=== PATIENT | male | born 1965 | race Caucasian/White ===

== ENCOUNTER 2020-06-23 15:35 | Inpatient (IN) | payer BC, OTHER ==
[~2020-06-23 15:35] MED LIST: Iopamidol-370 76% 500 ML 1 ML ONE
[2020-06-23] MEDS ORDERED: Lorazepam 2 MG/ML VIAL ONE ×2 (16:01→18:16)
[2020-06-23 16:30] LABS: #Lymphocytes 0.4 thou/uL (1.20-3.40); #Monocytes 0.4 thou/uL (0.11-0.59); #Neutrophils 4.2 thou/uL (1.40-6.50); %Basophils 0.7 % (0.0-1.0); %Eosinophils 0.3 % (0.0-10.0); %Lymphocytes 8.3 % (21.0-51.0); %Monocytes 7.5 % (0.0-10.0); %Neutrophils 83.1 % (42.0-75.0); Hemoglobin 12.4 g/dL (14.0-18.0); Mean Corpuscular HGB CONC 33.7 g/dL (32.0-36.0); Mean Corpuscular Hemoglobin 36.9 pg (27.0-31.0); RBC Distribution Width 12.5 % (11.5-14.5); Red Blood Cell (RBC) Count 3.36 mill/uL (4.70-6.10); White Blood Cell (WBC) Count 5.1 thou/uL (4.8-10.8)
--- NOTE | 2020-06-23 16:32 | RAD ---
PORTABLE CHEST ONE VIEW: 06/23/20 at 4:20 p.m. HISTORY: Altered mental status. FINDINGS/IMPRESSION: There are no previous exams for comparison. The heart is enlarged. No lobar consolidation, pneumothoraces, felicitas pulmonary edema or large effusio ns are seen. POS: OFF
[2020-06-23 16:36] LABS: Actual Bicarbonate (HCO3a) 23.5 mEq/L (22-28); Analyzer IN Cardio ER; CO2 Tension 38.6 mmHg (35.0-45.0); Calcium, Ionized (arterial) 1.14 mmol/L (1.12-1.30); Carboxyhemoglobin (COHb) 0.9 gm% (0.0-3.0); Hemoglobin (Hb) 12.4 g/dL (14.0-18.0); O2 Tension (PaO2), arterial 65.4 mmHg (80.0-100.0); Potassium - ABG Lab 3.74 mmol/L (3.70-5.30)
[2020-06-23 16:37] LABS: Puncture Site RRA
[2020-06-23] MEDS ORDERED: Cefepime 2 GM VIAL ONE (16:39)
[2020-06-23 16:46] LABS: ALT (SGPT) 55 U/L (8-55); AST (SGOT) 107 U/L (5-34); Albumin 3.3 g/dL (3.5-5.0); Alkaline Phosphatase 81 U/L (40-110); Anion Gap 13 mmol/L (10-20); BUN (Urea Nitrogen) 12 mg/dL (8.4-25.7); Calc. Creatinine Clearance 0 mL/min (70-130); Calcium 8.4 mg/dL (7.8-10.44); Carbon Dioxide 22 mmol/L (22-29); Chloride 105 mmol/L (98-107); Estimated GFR-MDRD Greater than 90; Globulin 5.9 g/dL (2.4-3.5); Glucose 169 mg/dL (70-105); Lipase 13 U/L (8-78); Potassium 3.9 mmol/L (3.5-5.1); Protein, Total 9.2 g/dL (6.0-8.3); Sodium 136 mmol/L (136-145)
[2020-06-23 16:51] LABS: MDiff Complete? YES; Macrocytosis SLIGHT = 6-15 cells (100X) (0-5/hpf); Mean Platelet Volume 9.3 fL (7.4-10.4); Platelet Count 81 thou/uL (130-400); Platelet Morphology Comment Appears Decreased; Polychromasia SLIGHT = 2-3 cells (100X) (0-2/hpf); Target Cells SLIGHT = 2-5 cells (100X) (0-1/hpf)
[2020-06-23 16:52] LABS: ALT (SGPT) 55 U/L (8-55); AST (SGOT) 115 U/L (5-34); Acetaminophen Less than 6.0 mcg/mL (10.0-30.0); Albumin 3.3 g/dL (3.5-5.0); Alcohol Less than 10 mg/dL (Less than 10); Alkaline Phosphatase 81 U/L (40-110); Bilirubin, Direct 1.5 mg/dL (0.1-0.3); Bilirubin, Total 4.7 mg/dL (0.2-1.2); CK (CPK) 114 U/L (30-200); Protein, Total 9.2 g/dL (6.0-8.3); Salicylate Less than 8.0 mg/dL (15.0-30.0)
[2020-06-23] MEDS ORDERED: Rocuronium Bromide 10 MG/ML (10ML VIAL) ONE (17:28)
--- NOTE | 2020-06-23 17:29 | CT ---
Head CT without contrast: 06/23/2020 COMPARISON: None HISTORY: Tremors, altered mental status, unresponsive, jaundice TECHNIQUE: Axial CT imaging at 5 mm intervals from vertex through skull base without contrast FINDINGS: There is a hyperdense lesion measuring 4.3 x 3.4 cm which is inseparable from the mid body of the left lateral ventricle, possibly along the superior margin of the left lateral ventricle. This is most consistent with a large intra-axial hemorrhage. There is prominent extension into the ve ntricular system with intraventricular hemorrhage involving the third ventricle and bilateral lateral ventricles, particularly the occipital horns, left greater than right. Periventricular hypode nsity suggests subacute minimal flow of CSF and enlargement of the lateral ventricles suggests obstructive hydrocephalus. There is associated extensive subarachnoid blood in bilateral frontal lobe s and parietal lobes. There is left to right midline shift measuring approximately 1 cm at the level of the septum pellucidum. There is extension of hemorrhage into the fourth ventricle. There is evidence of prior paranasal sinus surgery. No acute osseous abnormality. IMPRESSION: 3.4 x 4.2 cm hyperdense lesion most consistent with intra-axial hemorrhage along the preston in of the mid body left lateral ventricle with extensive intraventricular extension. Lateral ventricles are dilated consistent with obstructive hydrocephalus and there is transependymal flow of CSF. There is associated [id number] midline shift and diffuse subarachnoid blood. Follow-up brain MRI advised following resolution to exclude an underlying lesion which has bled. Results were discussed with Dr. Brown at 5:25 PM 06/23/2020
[2020-06-23] MEDS ORDERED: niCARdipine 20MG In NaCl 20 MG/200 ML BAG ONE ×2 (17:34→21:32)
--- NOTE | 2020-06-23 17:37 | CT ---
CT cervical spine without contrast: 06/23/2020 COMPARISON: None available HISTORY: Intracranial hemorrhage, altered mental status TECHNIQUE: Axial CT imaging at 2.5 mm intervals through the cervical spine without contrast. Coronal and sagittal reformatted imaging obtained. FINDINGS: There is intraventricular hemorrhage and dilation of the ventricular system, better assesse d on recent head CT. The C1 ring is intact. The craniocervical junction, the atlantoaxial interspace, the occipital condyl es, the dens, and the C1-2 articulation demonstrate no acute findings. The cervicothoracic junction demonstrates no acute findings. There is disc space narrowing and anterior osteophyte formation at C6 -7. No prevertebral soft tissue swelling. No anterolisthesis or retrolisthesis. The imaged lung apices demonstrate no acute findings. No acute fracture or dislocation is appreciated . IMPRESSION: Dilated lateral ventricles with intraventricular hemorrhage, better assessed on recent he ad CT. No evidence for acute fracture or dislocation within the cervical spine.
--- NOTE | 2020-06-23 17:43 | CT ---
CT of abdomen and pelvis: 06/23/2020 COMPARISON: None HISTORY: Cirrhosis, unresponsive patient TECHNIQUE: Axial CT imaging at 5 mm intervals from lung bases through pubic symphysis with IV contras t. Coronal and sagittal reformatted imaging obtained. FINDINGS: The imaged lung bases demonstrate patchy bibasilar density, likely on the basis of respirat ory motion artifact and mild volume loss. No free intraperitoneal air. The liver is enlarged and heterogeneous with mild peripheral irregularity consistent with the provide d history of cirrhosis. The spleen is enlarged measuring 21 cm in craniocaudal dimension, evidence of portal hypertension. The gallbladder, pancreas, adrenal glands, and kidneys demonstrate no acute findings. There are varic es along the greater and lesser curvature of the stomach, adjacent to the distal esophagus, within the gastrohepatic ligament, and in the region of the splenic hilum, consistent with portal hypertensi on. There is a small fat-containing umbilical hernia. There is mild distention of the urinary bladder. Pr ominent vascular structures are seen adjacent to the rectum suggesting internal hemorrhoid formation. Evaluation the bowel is limited without contrast media and demonstrates a few scattered diverticula w ithin the descending colon. There is minimal stranding of the fat within the posterior aspect of the inferior portion of the right paracolic gutter, likely associated with hepatocellular disease. There is scattered atherosclerotic calcification of the abdominal aorta and its branches. No abdomina l or pelvic lymphadenopathy. Review of the osseous structures demonstrates no worrisome lytic or blastic bone lesions. IMPRESSION: Cirrhosis with evidence of portal hypertension as detailed above.
[2020-06-23] MEDS ORDERED: Sodium Chloride 3% 250 ML IVPB SCH (17:45)
[2020-06-23] MEDS ORDERED: fentaNYL Citrate/PF 2,000 MCG in Sodium Chloride 0.9% 60 ML IV SCH ×2 (17:45→20:15)
[2020-06-23] MEDS ORDERED: Fentanyl 100 MCG/2 ML VIAL ONE (17:48)
[2020-06-23] MEDS ORDERED: Propofol 1,000 MG/100 ML VIAL IV ONE (17:48)
[2020-06-23 18:02] LABS: INR-International Normal Ratio 1.7; PTT 37.4 sec (22.9-36.1)
--- NOTE | 2020-06-23 18:15 | RAD ---
Portable frontal chest radiograph: 06/23/2020 COMPARISON: 06/23/2020 HISTORY: Evaluate chest following intubation FINDINGS: There is new patchy increased density in the perihilar regions and lung bases with new part ial consolidation/collapse of the medial left lower lobe. There is a nasogastric tube extending into the left upper quadrant and there is a new endotracheal tube projecting over the tracheal air co lumn terminating at the level of the clavicles IMPRESSION: New parenchymal opacities as above, left greater than right. Lines and tubes as detailed above.
[2020-06-23] MEDS ORDERED: levETIRAcetam in NS 100 ML ONE (18:19)
[2020-06-23] MEDS ORDERED: Labetalol HCl 100 MG/20 ML VIAL ONE (18:26)
[2020-06-23 18:46] LABS: Amphetamine Not Detected (NotDetected); Barbiturates Screen Not Detected (NotDetected); Benzodiazepine Screen Not Detected (NotDetected); Cocaine Metabolite Screen Not Detected (NotDetected); Medtox Control Line Valid? VALID (VALID); Medtox Reader # READER 1; Methadone Not Detected (NotDetected); Methamphetamine Not Detected (NotDetected); Opiate Screen Not Detected (NotDetected); Oxycodone Screen Not Detected (NotDetected); Phencyclidine (PCP) Not Detected (NotDetected); THC/Cannabinoid Screen Not Detected (NotDetected); Tricyclic Screen Not Detected (NotDetected)
[2020-06-23 19:03] LABS: Analyzer IN Cardio ER; Base Excess (BEa) -2.8 mEq/L (-2.0 to +3.0); CO2 Tension 49.8 mmHg (35.0-45.0); Calcium, Ionized (arterial) 1.16 mmol/L (1.12-1.30); Carboxyhemoglobin (COHb) 0.7 gm% (0.0-3.0); Hemoglobin (Hb) 12.9 g/dL (14.0-18.0); O2 Tension (PaO2), arterial 107.8 mmHg (80.0-100.0); Potassium - ABG Lab 3.79 mmol/L (3.70-5.30)
[2020-06-23] MEDS ORDERED: Ondansetron PF 4 MG/2 ML Vial IVP PRN (19:52)
[2020-06-23] MEDS ORDERED: Ondansetron ODT 4 MG TAB PO PRN (19:52)
[2020-06-23] MEDS ORDERED: Ventilator Sedation Protocol 1 EACH FS ONE (20:00)
[2020-06-23] MEDS ORDERED: niCARdipine 40MG In NaCl 40 MG/200 ML BAG IVPB SCH (20:00)
[2020-06-23 20:01] LABS: SARS-CoV-2 NAA Rapid Test Not Detected (NotDetected)
--- NOTE | 2020-06-23 20:09 | PDOC.HHP ---
Hospitalist HPI - History of Present Illness ich History of Present Illness: most of the history obtain from ems and emr records. during my evaluation pt was on sedated and on MV Case of an 55y/o male with pmhx of alcohol abuse and htn found unresponsive at home by his father brought in by EMS. On arrival patient noted to be jaundiced, responsive only to pain, telangiectases on body noted, incontinent of feces and with asterixis in upper extremities. Patient's father reports he has an extensive history of alcohol abuse exact amount per day unknown. Patient's length of time down at home is unknown. Patient's father last interacted with him 48 hours ago. patient was evaluated at found with ICH was placed in MV to protect airway and neurosurgery was called for evaluation. Hospitalist ROS - Review of Systems ROS unobtainable: due to endotracheal tube Hospitalist History - Past Surgical History Other Surgical History: unable to asses due to MV - Family History Other Family History: unable to asses due to MV - Social History Alcohol: reports: Heavy - Exam General Appearance: ill appearing General - other findings: sedated Eye: PERRL, anicteric sclera ENT: normocephalic atraumatic, no oropharyngeal lesions Neck: supple, symmetric, no JVD, no thyromegaly Heart: RRR, no murmur, no gallops Respiratory: CTAB, no wheezes, no rales, no ronchi Gastrointestinal: soft, non-tender, non-distended Extremities: no cyanosis, no clubbing, no edema Skin: normal turgor, no lesions, no rashes Neurological: cranial nerve grossly intact, normal sensation to touch Musculoskeletal: normal tone, normal strength, no muscle wasting Psychiatric: normal affect, normal behavior, A&O x 3 Hospitalist Results - Labs Result Diagrams: 06/23/20 16:13 06/23/20 16:13 Lab results: WBC 5.1 thou/uL (4.8-10.8) 06/23/20 16:13 Hgb 12.4 g/dL (14.0-18.0) L 06/23/20 16:13 Hct 36.9 % (42.0-52.0) L 06/23/20 16:13 MCV 110.0 fL (78.0-98.0) H 06/23/20 16:13 Plt Count 81 thou/uL (130-400) L 06/23/20 16:13 Neutrophils % 83.1 % (42.0-75.0) H 06/23/20 16:13 ABG pH 7.30 (7.35-7.45) L 06/23/20 18:03 ABG pCO2 49.8 mmHg (35.0-45.0) H 06/23/20 18:03 ABG pO2 107.8 mmHg (80.0-100.0) H 06/23/20 18:03 Sodium 136 mmol/L (136-145) 06/23/20 16:13 Potassium 3.9 mmol/L (3.5-5.1) 06/23/20 16:13 Chloride 105 mmol/L (98-107) 06/23/20 16:13 Carbon Dioxide 22 mmol/L (22-29) 06/23/20 16:13 BUN 12 mg/dL (8.4-25.7) 06/23/20 16:13 Creatinine 0.69 mg/dL (0.7-1.3) L 06/23/20 16:13 Glucose 169 mg/dL (70-105) H 06/23/20 16:13 Lactic Acid 1.3 mmol/L (0.5-2.2) 06/23/20 16:13 Calcium 8.4 mg/dL (7.8-10.44) 06/23/20 16:13 Total Bilirubin 4.7 mg/dL (0.2-1.2) H 06/23/20 16:13 Total Bilirubin 5.0 mg/dL (0.2-1.2) H 06/23/20 16:13 AST 107 U/L (5-34) H 06/23/20 16:13 AST 115 U/L (5-34) H 06/23/20 16:13 ALT 55 U/L (8-55) 06/23/20 16:13 ALT 55 U/L (8-55) 06/23/20 16:13 Alkaline Phosphatase 81 U/L (40-110) 06/23/20 16:13 Alkaline Phosphatase 81 U/L (40-110) 06/23/20 16:13 Ammonia 43 umol/L (18-72) 06/23/20 16:13 Creatine Kinase 114 U/L (30-200) 06/23/20 16:13 Troponin I 0.013 ng/mL (< 0.028) 06/23/20 16:13 Serum Total Protein 9.2 g/dL (6.0-8.3) H 06/23/20 16:13 Serum Total Protein 9.2 g/dL (6.0-8.3) H 06/23/20 16:13 Albumin 3.3 g/dL (3.5-5.0) L 06/23/20 16:13 Albumin 3.3 g/dL (3.5-5.0) L 06/23/20 16:13 Lipase 13 U/L (8-78) 06/23/20 16:13 Hospitalist H&P A/P - Problem (1) ICH (intracerebral hemorrhage) Code(s): I61.9 - NONTRAUMATIC INTRACEREBRAL HEMORRHAGE, UNSPECIFIED Status: Acute (2) Alcohol abuse Code(s): F10.10 - ALCOHOL ABUSE, UNCOMPLICATED Status: Acute (3) Cirrhosis Code(s): K74.60 - UNSPECIFIED CIRRHOSIS OF LIVER Status: Acute (4) HTN (hypertension) Code(s): I10 - ESSENTIAL (PRIMARY) HYPERTENSION Status: Acute - Plan Plan: 55y/o male with the state pmhx who present with ICH ICH - head ct consitent with ich - neuro surgery consulted - on nicardine drip to maintain b/p systolic under 140 - avoid blood thinners - npo - ffp + plts transfusion for procedure - avoid hypotonic fluids - on MV to protect airway - pulmo/crit consulted - martha for seizure prophylaxis htn - on nicardipine drip cirrhosis - secondary to alcohol use - consider thiamine + folic acid before po intake when pt is more stable - currently sedated - ammonia lvl at 43
[2020-06-23] MEDS ORDERED: Fentanyl BOLUS 250 ML IVPB PRN (20:15)
[2020-06-23] MEDS ORDERED: Lorazepam 2 MG/ML VIAL SLOW IVP PRN (20:15)
[2020-06-23] MEDS ORDERED: Propofol BOLUS 1,000 MG/100 ML VIAL IV PRN (20:15)
[2020-06-23] MEDS ORDERED: DISCONTINUE PREVIOUS NARCOTIC PAIN MEDICATIONS AND BENZODIAZEPINES FS SCH (20:15)
[2020-06-23] MEDS ORDERED: Morphine 2 MG/ML VIAL SLOW IVP PRN (20:15)
[2020-06-23 20:55] LABS: INR-International Normal Ratio 1.6; PTT 35.2 sec (22.9-36.1); Prothrombin Time 19.4 sec (12.0-14.7)
[2020-06-23] MEDS ORDERED: levETIRAcetam in NS 500 MG in Premix Bag 1 BAG IVPB SCH (21:00)
[2020-06-23 21:01] LABS: Platelet Count 95 thou/uL (130-400)
[2020-06-23 21:15] LABS: INR-International Normal Ratio 1.5
[2020-06-23] MEDS ORDERED: Water For Inject, Bacteriostat 30 ML ONE (21:51)
[2020-06-23] MEDS ORDERED: ceFAZolin 1 GM/D5W 1 GM in Premix Bag 1 BAG IVPB SCH (22:00)
[2020-06-23] MEDS ORDERED: Sterile Water 10 ML ONE (23:35)
[2020-06-23] MEDS ORDERED: Piperacillin/Tazobactam 4.5 GM in Sodium Chloride 0.9% 100 ML IVPB SCH (23:59)
--- NOTE | 2020-06-24 00:33 | CON ---
DATE OF CONSULTATION: 06/23/2020 HISTORY OF PRESENT ILLNESS: Mr. Villagran is a 55-year-old male with a past medical history of alcoholism, cirrhosis, hypertension, who was found down earlier by his family. He was brought to the emergency department at [facility] where he was evaluated with a noncontrast CT head, which showed a very large bilateral intraventricular hemorrhage. He was also significantly hypertensive on arrival with systolic blood pressure greater than 200. The patient had a poor neurologic exam. He does not open his eyes, not responding to questions, had some snoring breath sounds, but would withdraw to pain according to the ER report. He was subsequently intubated by the ER team not long after his arrival. His platelets were found to be 80 and his INR was elevated at 1.7. His PT was 20 and his PTT was 37.4. He was typed and screened and platelets and FFP were ordered. I presented to the bedside for evaluation of the patient. He has just been intubated, so currently he does not open his eyes. His pupils are pinpoint and nonreactive. He is not responsive to pain. He does not have a gag reflex. He is not overbreathing the vent. PAST MEDICAL HISTORY: Hypertension, cirrhosis, alcoholism. PAST SURGICAL HISTORY: Are all unobtainable secondary to patient condition. SOCIAL HISTORY: Are all unobtainable secondary to patient condition. ALLERGIES: ARE ALL UNOBTAINABLE SECONDARY TO PATIENT CONDITION. PHYSICAL EXAMINATION: VITAL SIGNS: He is tachycardic in the 160s. His blood pressure systolic 213 over diastolic 104, temperature is 96.7. He is 100% and being mechanically ventilated. HEENT: Normocephalic and atraumatic. Eyes, pupils are currently pinpoint and nonreactive. ENT: Endotracheal tube is in place. He does not have a gag reflex at this time. CHEST: He is currently being mechanically ventilated with symmetric chest expansion and bilateral breath sounds were noted. MUSCULOSKELETAL: No obvious deformities, symmetric pulses. NEUROLOGIC: Currently has a GCS of 3, but this is likely due to medications, which were recently given. He is not opening his eyes. He is not responding to voice or pain. ASSESSMENT AND PLAN: This is a chronic alcoholic with a history of coagulopathies with thrombocytopenia and elevated INR, who was found down by family and found to have a large intraventricular hemorrhage. He also is quite hypertensive. With regard to his hypertension, he has been started on nicardipine drip and we will titrate with a goal systolic blood pressure of less than 140. He has a very significant ventriculomegaly due to this large intraventricular hemorrhage and would benefit from a ventriculostomy. Unfortunately, his coagulopathy is currently preventing that; however, we will attempt to reverse his platelets and INR with a goal of an INR of less than 1.4 or less. I will repeat these labs once the platelets and FFP have been given and if the PT, INR as well as platelets have improved, I will attempt a left frontal ventriculostomy. He will be admitted to the medical team to the CCU. We will also continue anti-epileptics with a gram of Keppra b.i.d. as there was concern for possible seizure event. I have discussed the case with Dr. Majano who is in agreement. Job ID: [id number] MTDD
[2020-06-24 01:19] VITALS: BMI 30.4
[2020-06-24] MEDS: ceFAZolin 1 GM/D5W 1 GM in Premix Bag 1 BAG IVPB SCH ×3 (02:18→17:05)
--- NOTE | 2020-06-24 02:25 | OP ---
DATE OF PROCEDURE: 06/23/2020 PROCEDURE: Left frontal ventriculostomy. PRE-PROCEDURE DIAGNOSES: Intraventricular hemorrhage, ventriculomegaly. PROCEDURE DETAIL: Bassam's point was identified in the left frontal scalp. This was marked, prepped and draped in sterile fashion. At this point, a 15 blade knife was used to incise the scalp down to the periosteum making a roughly 1 cm incision. A cranial twist drill was then used to create a sadie hole at Bassam's point in the left frontal bone. The dura was cleared using blunt dissection and then an interventricular catheter was placed at the depth of 6 cm with quick egress of sanguinous fluid from the catheter. This was hooked up to a Bradley drain. An ICP measured 10 at the time. The incision and drain were then secured using Ethilon suture. The drain was set to a setting of 10 cm of water. The patient tolerated the procedure well under sedation. Family was notified of the postprocedure progress and he was transitioned to the CCU, started on Ancef post procedure. Job ID: [id number]
[2020-06-24] MEDS: Famotidine/PF 20 mg/2ml Vial SLOW IVP SCH ×3 (05:08→21:15)
[2020-06-24] MEDS: levETIRAcetam in NS 1,000 MG in Premix Bag 1 BAG IVPB SCH ×3 (05:08→21:15)
[2020-06-24 05:33] LABS: ALT (SGPT) 47 U/L (8-55); AST (SGOT) 89 U/L (5-34); Albumin 3.5 g/dL (3.5-5.0); Alkaline Phosphatase 75 U/L (40-110); Anion Gap 15 mmol/L (10-20); BUN (Urea Nitrogen) 16 mg/dL (8.4-25.7); Band 5 % (5-11); Bilirubin, Total 4.9 mg/dL (0.2-1.2); Calc. Creatinine Clearance 135 mL/min (70-130); Calcium 8.5 mg/dL (7.8-10.44); Carbon Dioxide 25 mmol/L (22-29); Chloride 104 mmol/L (98-107); Estimated GFR-MDRD Greater than 90; Globulin 5.3 g/dL (2.4-3.5); Glucose 158 mg/dL (70-105); Hemoglobin 10.6 g/dL (14.0-18.0); Lymphocytes 9 % (21-51); MDiff Complete? YES; Macrocytosis SLIGHT = 6-15 cells (100X) (0-5/hpf); Mean Corpuscular HGB CONC 33.2 g/dL (32.0-36.0); Mean Corpuscular Hemoglobin 36.4 pg (27.0-31.0); Mean Platelet Volume 8.4 fL (7.4-10.4); Monocytes 10 % (0-10); Neutrophil 76 % (42-75); Platelet Count 96 thou/uL (130-400); Platelet Morphology Comment Appears Decreased; Potassium 3.5 mmol/L (3.5-5.1); Protein, Total 8.8 g/dL (6.0-8.3); RBC Distribution Width 12.3 % (11.5-14.5); Red Blood Cell (RBC) Count 2.91 mill/uL (4.70-6.10); Sodium 140 mmol/L (136-145); White Blood Cell (WBC) Count 8.2 thou/uL (4.8-10.8)
[2020-06-24] MEDS: niCARdipine 50 MG in Sodium Chloride 0.9% 250 ML 230 ML IV SCH (05:59)
--- NOTE | 2020-06-24 08:21 | OP ---
DATE OF PROCEDURE: 06/24/2020 PROCEDURE PERFORMED: Replacement of ventricular catheter. DESCRIPTION OF PROCEDURE: The previous ventricular catheter was removed. A new ventricular catheter was brought into the field, and using sterile technique, this was advanced with a more anterior trajectory. Brisk CSF, which was initially clear was obtained under significant pressure and was evacuated. This rapidly became bloody and ultimately slowed the flow of return. The catheter was connected to a drainage system and secured to the skin and dressed appropriately. Job ID: [id number]
[2020-06-24] MEDS: Propofol 1,000 MG/100 ML VIAL IV PRN ×2 (08:40→18:46)
[2020-06-24] MEDS ORDERED: Vecuronium 10 MG VIAL ONE (09:09)
--- NOTE | 2020-06-24 09:23 | CT ---
PRELIMINARY REPORT/[facility]/EMERGENCY AFTER HOURS PROCEDURE: EXAM: CT Head Without Intravenous Contrast. CLINICAL HISTORY: M55, repeat eval IVH, Left frontal EVD placed. TECHNIQUE: Axial computed tomography images of the head/brain without intravenous contrast. COMPARISON: 06/23/2020. FINDINGS: Since the previous examination a left frontal ventricular shunt catheter has been placed. There nadir ins moderate acute intraventricular hemorrhage with some decompression of the lateral ventricles. Mo derate subarachnoid hemorrhage identified. There remains slight left to right midline displacement o f approximately 5 mm. The basilar cisterns are maintained. IMPRESSION: Placement of a left frontal ventricular shunt catheter. There is diminished acute intraventricular h emorrhage since prior study. Moderate subarachnoid hemorrhage bilaterally. There remains mild 5 mm left to right midline displacement.. ELECTRONICALLY SIGNED BY: Zeinab Veliz DO Jun 24, 2020 4:21:20 AM SWIMMING INSTRUCTOR This report is intended for review by the ordering physician only, in accordance of law. If you recei ve this report in error, please call [facility] at [phone]. FINAL REPORT EMERGENCY AFTER HOURS CT OF THE BRAIN WITHOUT CONTRAST: COMPARISON: 06/23/2020. HISTORY: Intracranial hemorrhage. Ventriculostomy drain placement. FINDINGS/IMPRESSION: I agree with the findings and impression given in the preliminary report per [facility] physici an. There has been interval placement of a left frontal ventriculostomy catheter with tip in the left lat eral ventricle. There is decreased intraventricular hemorrhage. A large amount of subarachnoid hemorr delmi is again seen. There is stable prominence of the lateral ventricles. POS: [facility]
--- NOTE | 2020-06-24 10:08 | PDOC.HOSPP ---
- Subjective Encounter Date: 06/24/20 Encounter Time: 10:04 Subjective: Mr. Villagran was seen today in follow-up of ICH. He is s/p ventriculostomy. He is intubated and sedated, and currently undergoing EEG - Objective Vital Signs & Weight: Vital Signs (12 hours) Temp Pulse Resp BP Pulse Ox 06/24/20 08:00 20 06/24/20 06:55 103 H 06/24/20 06:00 25 H 06/24/20 04:00 24 H 06/24/20 02:47 69 129/75 06/24/20 02:00 20 06/24/20 00:31 76 131/67 06/23/20 23:30 98.4 F 97 Weight Weight 212 lb 4.882 oz Most Recent Monitor Data Heart Rate from ECG 88 NIBP 100/54 NIBP BP-Mean 69 Respiration from ECG 20 SpO2 99 I&O: 06/23/20 06/24/20 06/25/20 06:59 06:59 06:59 Intake Total 50 Output Total 980 170 Balance -930 -170 Result Diagrams: 06/24/20 03:25 06/24/20 03:25 Hospitalist ROS - Medication Medications: Active Medications Generic Name Dose Route Start Last Admin Trade Name Freq PRN Reason Stop Dose Admin Famotidine 20 mg 06/23/20 21:00 06/24/20 05:08 Famotidine/Pf 20 Mg/2ml Vial SLOW IVP Not Given Q12HR WENDIE Nicardipine HCl 50 mg/ Sodium 250 mls @ 0 mls/hr 06/23/20 20:15 06/24/20 05:59 Chloride IV 250 mls INF WENDIE Administration Protocol As Directed Levetiracetam 1,000 mg/ Device 100 mls @ 200 mls/hr 06/23/20 21:00 06/24/20 05:08 IVPB Not Given BID WENDIE Cefazolin Sodium/Dextrose 1 gm 50 mls @ 200 mls/hr 06/24/20 02:00 06/24/20 02 :18 / Device IVPB 50 mls 0200,1000,1800 WENDIE Administration Propofol 1,000 mg 06/23/20 20:15 06/24/20 08:40 Propofol 1,000 Mg/100 Ml Vial IV 07/23/20 20:15 1,000 mg INF PRN Administration TO ACHIEVE GOAL RASS Protocol - Exam Eye - other findings: eyes are cosed, and eeg eolectrodes in place Heart: RRR, no murmur, no gallops, normal peripheral pulses Respiratory: CTAB, no wheezes, no rales, no ronchi, normal chest expansion Gastrointestinal: soft, non-tender, non-distended, normal bowel sounds Extremities: no cyanosis, no edema Hosp A/P (1) ICH (intracerebral hemorrhage) Code(s): I61.9 - NONTRAUMATIC INTRACEREBRAL HEMORRHAGE, UNSPECIFIED Status: Acute (2) Alcohol abuse Code(s): F10.10 - ALCOHOL ABUSE, UNCOMPLICATED Status: Chronic (3) Cirrhosis Code(s): K74.60 - UNSPECIFIED CIRRHOSIS OF LIVER Status: Chronic (4) HTN (hypertension) Code(s): I10 - ESSENTIAL (PRIMARY) HYPERTENSION Status: Chronic - Plan * ICH- unclear etiology, possibly from hypertension- he is s/p ventriculostomy drain placemement * HTN- blood pressure is controlled on a Cardene drip * Will add maintenance fluids * The patient's sister is at bedside, and she tells me the family met last night, and has designated his oldest son who is 26, to be the surrogate decision maker. His name is Lexa Clark * Continue Ventilator support * Further recommendation per Neurosurgery and Neurology *
--- NOTE | 2020-06-24 10:27 | PRG ---
DATE OF SERVICE: 06/24/2020 SUBJECTIVE: The patient is seen and examined. I agree with Ivana Lemos's evaluation on 06/23/2020. The patient is a 55-year-old man, who was found down. He has chronic alcoholism and had a significant coagulopathy with elevated INR and low platelets. Currently, he is intubated and sedated. CT scan reveals a large left thalamic hemorrhage with extensive intraventricular extension and ventriculomegaly, left greater than right. IMPRESSION AND PLAN: The patient has a large thalamic hemorrhage with intraventricular extension. His prognosis for recovery is poor. We have corrected his coagulopathy to the best of our ability and placed the left frontal ventricular catheter. This drained substantial CSF under pressure. As expected, the catheter rapidly clogged with blood products. I replaced the catheter this morning and again brisk CSF under pressure was obtained, but after a short period of time, the catheter began to clog as well. We will continue efforts to restore catheter patency, but ultimately this will be an ongoing malcolm given the amount of blood products in the ventricular system. Job ID: [id number]
[2020-06-24] MEDS: Lactated Ringer's 1,000 ML IV SCH (11:17)
--- NOTE | 2020-06-24 12:29 | PDOC.EEG ---
Neurology EEG Report - Report Report: This EEG was performed using 24 channel Prosensa video digital EEG machine with 24 disc electrodes. This was an extended 2 hours 4 minutes of EEG recording. Digital analysis of the EEG was done for Stalin and seizure detection which revealed no abnormalities. Background: The posterior background rhythm was not observed. Photic stimulation: No response seen with photic stimulation. Hyperventilation: Not performed. Sleep: No stage change was observed. EEG diagnosis: Generalized irregular theta activity seen throughout the recording. Absence of posterior background rhythm. Clinical interpretation: This EEG is consistent with moderate generalized nonspecific cerebral dy sfunction.
--- NOTE | 2020-06-24 12:59 | PDOC.PALCO ---
Palliative Care Consult - Consult Details Requesting Physician: Dr Johnston Reason for Consult: assistance with communication prognosis/disease, complex decision-making Family Members Present: patient sister Jody Garcia - Pertinent HPI 55 year old male who lives in an independent home setting. Known history of alcohol abuse, was found by his father the morning of 06/23/2020. He had an altered mental status, EMS was called. Initially patient was noted to be jaundiced, responsive to pain, incontinent of bowel. Patient had last been seen 48 hours prior, was noted to be at work the day prior. Intubated and transported to [facility] for further evaluation. ICH identified, ventriculostomy drain placed, blood pressure controlled with Cardene drip. - Pertinent PMH Alcohol abuse, htn - Social History Smoking Status: Unknown if ever smoked Alcohol Use: heavy Drug Use History: none Living Situation: independent - Medications MAR Reviewed: Yes - Allergies Allergies/Adverse Reactions: Allergies Allergy/AdvReac Type Severity Reaction Status Date / Time Sulfa (Sulfonamide Allergy Unverified 06/23/20 17:42 Antibiotics) - Subjective Intubated, sedated, ventriculostomy, sister at bedside - ROS Non Response: due to endotracheal tube, due to mental status - Objective Vital Signs: Vital Signs - Most Recent Temp Pulse Resp BP Pulse Ox 98.4 F 84 25 H 129/75 97 06/23/20 23:30 06/24/20 10:47 06/24/20 12:00 06/24/20 02:47 06/23/20 23:30 Palliative Performance Scale: 20 - Physical Exam Constitutional: encephalitic, ill appearing HEENT: moist MMs Respiratory: no wheezing, unlabored breathing Cardiovascular: RRR Gastrointestinal: soft, non-tender, positive bowel sounds Genitourinary: zhou catheter Musculoskeletal: no clubbing Deviation from normal: sedated, coughs over vent - Problem List (1) Palliative care encounter Code(s): Z51.5 - ENCOUNTER FOR PALLIATIVE CARE Current Visit: Yes Status: Acute (2) ICH (intracerebral hemorrhage) Code(s): I61.9 - NONTRAUMATIC INTRACEREBRAL HEMORRHAGE, UNSPECIFIED Current Visit: Yes Status: Acute (3) Alcohol abuse Code(s): F10.10 - ALCOHOL ABUSE, UNCOMPLICATED Current Visit: Yes Status: Chronic (4) Cirrhosis Code(s): K74.60 - UNSPECIFIED CIRRHOSIS OF LIVER Current Visit: Yes Status: Chronic (5) HTN (hypertension) Code(s): I10 - ESSENTIAL (PRIMARY) HYPERTENSION Current Visit: Yes Status: Chronic - Plan/Recommendations Plan: Sister at bedside, reviewed recent history and the fact that her father found the patient. Short life review. Mr Villagran lives next to his father, and his son and [id number]-oxabtm-[id number]-law and son Lexa live on the other side of him. His has always been "a hard worker" and never missed work. Mr Villagran has 3 children, /not . Lexa Villagran [phone] [place] [phone] [place] [phone] Sister Jody is at bedside, and although Lexa is surrogate decision maker, she is communicating with the children and coordinating information. She is a retired RN. Chronic alcohol abuse, significant family dynamics. Family is hopeful for recovery, understanding of fragile situation and poor prognosis. Emotional Support Palliative care will continue to support and discuss Goal of Care as appropriate. Patient has no directives, however introduced consideration to transition to a DNAR. Communicated with Dr Escobar Spiritual care consult [75] minutes spent on this encounter with >50% of the time in counseling and coordination of care. Thank you for this very appropriate consult.
--- NOTE | 2020-06-24 13:10 | CON ---
NEUROLOGY CONSULTATION DATE OF CONSULTATION: 06/24/2020 REASON FOR CONSULTATION: Altered mental status, status post intracranial hemorrhage. HISTORY OF PRESENT ILLNESS: Mr. Lexa Villagran is a 55-year-old male with history significant for alcohol abuse and hypertension, presented to the emergency room after he was found unresponsive by his [id number]. History is obtained from the family member at bedside . He has had ongoing issues with alcohol abuse and was seen by a physician at [facility] and was told to quit drinking because he was diagnosed with cirrhosis. He does have history of coffee-grounds emesis on and off since the last few weeks. History is obtained per records. He was seen this morning by his [id number] and he was not feeling well. He interacted with him 48 hours ago and this morning he found him at house extremely lethargic, so called his Family member who called 911, and he was brought to the emergency room for further evaluation. Head CT was done in the emergency room, which showed intracranial hemorrhage. He was intubated and sedated to protect his airways. Neurosurgery evaluated the patient and he is now status post ventriculostomy. Neurology was consulted to rule out seizures. REVIEW OF SYSTEMS: Unobtainable due to endotracheal tube. PAST SURGICAL HISTORY: Not significant. PAST FAMILY HISTORY: No significant past family history. PAST MEDICAL HISTORY: Alcohol abuse, hypertension. SOCIAL HISTORY: The patient denies smoking. He does have history of alcohol abuse. Allergies: Sulfa Vital Signs & Weight: Vital Signs (12 hours) Temp Pulse Resp BP Pulse Ox 06/24/20 08:00 20 06/24/20 06:55 103 H 06/24/20 06:00 25 H 06/24/20 04:00 24 H 06/24/20 02:47 69 129/75 06/24/20 02:00 20 06/24/20 00:31 76 131/67 06/23/20 23:30 98.4 F 97 Weight Weight 212 lb 4.882 oz Most Recent Monitor Data Heart Rate from ECG 88 NIBP 100/54 NIBP BP-Mean 69 Respiration from ECG 20 SpO2 99 I&O: 06/23/20 06/24/20 06/25/20 06:59 06:59 06:59 Intake Total 50 Output Total 980 170 Balance -930 -170 Active Medications Generic Name Dose Route Start Last Admin Trade Name Freq PRN Reason Stop Dose Admin Famotidine 20 mg 06/23/20 21:00 06/24/20 05:08 Famotidine/Pf 20 Mg/2ml Vial SLOW IVP Not Given Q12HR WENDIE Nicardipine HCl 50 mg/ Sodium 250 mls @ 0 mls/hr 06/23/20 20:15 06/24/20 05:59 Chloride IV 250 mls INF WENDIE Administration Protocol As Directed Levetiracetam 1,000 mg/ Device 100 mls @ 200 mls/hr 06/23/20 21:00 06/24/20 05:08 IVPB Not Given BID WENDIE Cefazolin Sodium/Dextrose 1 gm 50 mls @ 200 mls/hr 06/24/20 02:00 06/24/20 02:18 / Device IVPB 50 mls 0200,1000,1800 WENDIE Administration Propofol 1,000 mg 06/23/20 20:15 06/24/20 08:40 Propofol 1,000 Mg/100 Ml Vial IV 07/23/20 20:15 1,000 mg INF PRN Administration TO ACHIEVE GOAL RASS Protocol PHYSICAL EXAMINATION: GENERAL APPEARANCE: Ill-appearing. Heart: RRR, no murmur, no gallops, normal peripheral pulses Respiratory: CTAB, no wheezes, no rales, no ronchi, normal chest expansion Gastrointestinal: soft, non-tender, non-distended, normal bowel sounds Extremities: no cyanosis, no edema NEUROLOGICAL: Mental status, the patient is intubated and sedated. He does not follow commands. He does not maintain eye contact. Cranial nerves; pupils 4 mm, round, minimally reactive to light. Face symmetric. Tongue midline. Motor, muscle tone and bulk are normal. No spontaneous movement of all 4 extremities seen. Sensory; withdraws all 4 extremities minimally to nailbed pressure. Cerebellar; unable to perform secondary to sedation. Gait deferred due to patient's safety reasons and patient being intubated and sedated. DATA REVIEWED: I reviewed the labs, which were significant for hemoglobin of 12.4, hematocrit of 36.9, and platelets of 81. Lab results: WBC 5.1 thou/uL (4.8-10.8) 06/23/20 16:13 Hgb 12.4 g/dL (14.0-18.0) L 06/23/20 16:13 Hct 36.9 % (42.0-52.0) L 06/23/20 16:13 MCV 110.0 fL (78.0-98.0) H 06/23/20 16:13 Plt Count 81 thou/uL (130-400) L 06/23/20 16:13 Neutrophils % 83.1 % (42.0-75.0) H 06/23/20 16:13 ABG pH 7.30 (7.35-7.45) L 06/23/20 18:03 ABG pCO2 49.8 mmHg (35.0-45.0) H 06/23/20 18:03 ABG pO2 107.8 mmHg (80.0-100.0) H 06/23/20 18:03 Sodium 136 mmol/L (136-145) 06/23/20 16:13 Potassium 3.9 mmol/L (3.5-5.1) 06/23/20 16:13 Chloride 105 mmol/L (98-107) 06/23/20 16:13 Carbon Dioxide 22 mmol/L (22-29) 06/23/20 16:13 BUN 12 mg/dL (8.4-25.7) 06/23/20 16:13 Creatinine 0.69 mg/dL (0.7-1.3) L 06/23/20 16:13 Glucose 169 mg/dL (70-105) H 06/23/20 16:13 Lactic Acid 1.3 mmol/L (0.5-2.2) 06/23/20 16:13 Calcium 8.4 mg/dL (7.8-10.44) 06/23/20 16:13 Total Bilirubin 4.7 mg/dL (0.2-1.2) H 06/23/20 16:13 Total Bilirubin 5.0 mg/dL (0.2-1.2) H 06/23/20 16:13 AST 107 U/L (5-34) H 06/23/20 16:13 AST 115 U/L (5-34) H 06/23/20 16:13 ALT 55 U/L (8-55) 06/23/20 16:13 ALT 55 U/L (8-55) 06/23/20 16:13 Alkaline Phosphatase 81 U/L (40-110) 06/23/20 16:13 Alkaline Phosphatase 81 U/L (40-110) 06/23/20 16:13 Ammonia 43 umol/L (18-72) 06/23/20 16:13 Creatine Kinase 114 U/L (30-200) 06/23/20 16:13 Troponin I 0.013 ng/mL (< 0.028) 06/23/20 16:13 Serum Total Protein 9.2 g/dL (6.0-8.3) H 06/23/20 16:13 Serum Total Protein 9.2 g/dL (6.0-8.3) H 06/23/20 16:13 Albumin 3.3 g/dL (3.5-5.0) L 06/23/20 16:13 Albumin 3.3 g/dL (3.5-5.0) L 06/23/20 16:13 Lipase 13 U/L (8-78) 06/23/20 16:13 ASSESSMENT AND PLAN: (1) ICH (intracerebral hemorrhage) Code(s): I61.9 - NONTRAUMATIC INTRACEREBRAL HEMORRHAGE, UNSPECIFIED Status: Acute (2) Alcohol abuse Code(s): F10.10 - ALCOHOL ABUSE, UNCOMPLICATED Status: Chronic (3) Cirrhosis Code(s): K74.60 - UNSPECIFIED CIRRHOSIS OF LIVER Status: Chronic (4) HTN (hypertension) Code(s): I10 - ESSENTIAL (PRIMARY) HYPERTENSION Status: Chronic Mr. Villagran is a 55-year-old male with a history of alcohol abuse and hypertension, presented with intracranial hemorrhage. Strict control of blood pressure, patient on nicardipine drip to maintain systolic blood pressure under 140. Avoid blood thinners. The patient is n.p.o. EEG reviewed and was negative for seizure activity. Continue Keppra for seizure prophylaxis. Observe seizure precautions. Ativan 2 mg IV for seizure greater than 2 minutes. CIWA protocol. Consider thiamine and folic acid supplementation. Continue medical management per primary team. Plan discussed in detail with the patient's family member and the nursing staff at bedside. Neurosurgery is on board and he is status post a ventriculostomy drain placement. The patient's sister is at bedside. Continue medical management per primary team and Neurosurgery. We will continue to follow. Thank you for the consult. Job ID: [id number] [facility]
[2020-06-24] MEDS ORDERED: Sterile Water 0 ML ONE (19:12)
[2020-06-24] MEDS ORDERED: Norepinephrine 8 MG/0.9% NS 0 ML ONE (19:13)
--- NOTE | 2020-06-24 19:26 | CON ---
DATE OF CONSULTATION: 06/24/2020 HISTORY OF PRESENT ILLNESS: Sparkle is a 55-year-old male. His sister tells me he is trying to quit drinking after being told at [facility] that he has cirrhosis. He apparently presented with GI bleeding. He apparently was unresponsive at home for several hours and subsequently admitted. He has a ventricular hemorrhage and a parenchymal brain hemorrhage as well. PAST MEDICAL HISTORY: According to sister is more or less unremarkable. He had a perforated appendix when he was very young that almost lead to his demise, but nothing since. FAMILY HISTORY: Negative for lung disease in early age. SOCIAL HISTORY: He has been a big drinker, but apparently has been going to counseling and trying to cut back. He is not a smoker. ALLERGIES: SULFA IS REPORTED DRUG ALLERGY. REVIEW OF SYSTEMS: Not obtainable. PHYSICAL EXAMINATION: GENERAL: He is sedated and coughing frequently, so we chemically paralyzed him. The support technician was hooking him up for an EEG when I saw him. HEENT: His pupils react. His sclerae are anicteric. NECK: Without lymphadenopathy. LUNGS: Clear anteriorly. HEART: Regular rhythm. ABDOMEN: Soft without guarding or masses. EXTREMITIES: Without clubbing, cyanosis, or edema. LABORATORY DATA: White count 8.2, hemoglobin 10.6, platelets 96,000. Electrolytes are normal. Creatinine is normal. Bilirubin is 4.9. Liver enzymes are mildly elevated. Protein is 8.8, albumin is 3.5. INR is 1.5, 1.7 on admission. IMPRESSION: Brain hemorrhage with ventricular extension with an external ventricular drain in place. I have deferred to Neurosurgery and Neurology for prognosis with his sister. I have explained that he is not weanable until we see some neurological improvement or stability. CRITICAL CARE TIME: 30 minutes. Job ID: [id number] MTDD
[2020-06-24] MEDS: CEFAZOLIN 2 GM in Premix Bag 1 BAG IVPB SCH (22:40)
[2020-06-25] MEDS: Lactated Ringer's 1,000 ML IV SCH ×2 (01:12→14:39)
[2020-06-25] MEDS: CEFAZOLIN 2 GM in Premix Bag 1 BAG IVPB SCH ×3 (06:10→21:14)
[2020-06-25 06:37] LABS: #Basophils 0.1 thou/uL (0.0-0.2); #Monocytes 0.8 thou/uL (0.11-0.59); %Basophils 0.7 % (0.0-1.0); %Eosinophils 0.1 % (0.0-10.0); %Lymphocytes 12.1 % (21.0-51.0); %Monocytes 10.4 % (0.0-10.0); %Neutrophils 76.7 % (42.0-75.0); Hemoglobin 10.1 g/dL (14.0-18.0); Mean Corpuscular Hemoglobin 36.3 pg (27.0-31.0); Mean Platelet Volume 8.5 fL (7.4-10.4); Platelet Count 81 thou/uL (130-400); RBC Distribution Width 12.5 % (11.5-14.5); Red Blood Cell (RBC) Count 2.79 mill/uL (4.70-6.10); White Blood Cell (WBC) Count 7.8 thou/uL (4.8-10.8)
[2020-06-25 06:46] LABS: Anion Gap 12 mmol/L (10-20); BUN (Urea Nitrogen) 18 mg/dL (8.4-25.7); Calc. Creatinine Clearance 142 mL/min (70-130); Calcium 8.2 mg/dL (7.8-10.44); Carbon Dioxide 25 mmol/L (22-29); Chloride 108 mmol/L (98-107); Estimated GFR-MDRD Greater than 90; Glucose 136 mg/dL (70-105); Potassium 3.5 mmol/L (3.5-5.1); Sodium 141 mmol/L (136-145)
--- NOTE | 2020-06-25 08:13 | CT ---
CT BRAIN WITHOUT CONTRAST: COMPARISON: 06/24/2020. HISTORY: Intracranial hemorrhage status post ventriculostomy catheter placement. TECHNIQUE: Multiple contiguous axial images were obtained in a CT of the brain without contrast. FINDINGS: A left frontal approach ventriculostomy catheter is again seen with its tip in the left lateral ventr icle. There a large amount of intraventricular hemorrhage. There is enlargement of the lateral vent ricles, but the enlargement may have decreased compared to the prior examination. There is also a la rge amount of bilateral subarachnoid hemorrhage, unchanged. The right temporal horn of the lateral v entricle has significantly decreased in size, but the left temporal horn lateral ventricle is persist ently enlarged. Mild midline shift to the right is stable. No downward herniation is seen at this t raymond. IMPRESSION: 1. Stable intracranial hemorrhage status post ventriculostomy catheter placement. 2. Slight decreased size of the lateral ventricles. POS: EAA
[2020-06-25] MEDS: Famotidine/PF 20 mg/2ml Vial SLOW IVP SCH ×2 (08:49→20:23)
[2020-06-25] MEDS: levETIRAcetam in NS 1,000 MG in Premix Bag 1 BAG IVPB SCH ×2 (08:51→20:23)
[2020-06-25] MEDS: Propofol 1,000 MG/100 ML VIAL IV PRN ×3 (09:36→20:36)
--- NOTE | 2020-06-25 09:42 | PRG ---
DATE OF SERVICE: 06/25/2020 SUBJECTIVE: Lexa Villagran, this morning remains on the vent, unresponsive, large left intraparenchymal hemorrhage. OBJECTIVE: VITAL SIGNS: Pulse 119, blood pressure 160/84, saturations 100% CHEST: Extensive rhonchi bilaterally. CARDIAC: Normal S1, S2. No gallops. ABDOMEN: Soft. LABORATORY DATA: Lytes are normal. White count 7000, H and H are 10 and 30, platelet count is 81. IMPRESSION: Respiratory failure secondary to large left frontal hemorrhage, status post shunt. The patient's sister is at the bedside. She is aware of his long-term prognosis being poor. We are going to continue supportive care. Consider starting nutrition in the next several days. One-half hour of critical time. Job ID: [id number]
[2020-06-25] MEDS ORDERED: Labetalol HCl 100 MG/20 ML VIAL SLOW IVP PRN (09:43)
[2020-06-25] MEDS ORDERED: Amlodipine 5 MG TAB PO SCH (09:45)
[2020-06-25] MEDS ORDERED: Carvedilol 3.125 MG TAB PO SCH (09:45)
--- NOTE | 2020-06-25 09:48 | PRG ---
DATE OF SERVICE: 06/25/2020 SUBJECTIVE: The patient is now 2 days out from his acute basal ganglia hemorrhage with biventricular extension. His repeat CT shows adequate placement of the EVD in the left lateral ventricle. He has had EVD set at 10 cm of water and is draining anywhere from 8-10 mL of bloody drainage per hour. ICP is currently 5. His platelets are 81 and his INR is still pending this morning. OBJECTIVE: On exam with sedation off, the patient will grimace over the face to sternal rub. He withdraws briskly over all 4s. He will spontaneously move the left upper extremity, but this does not seem purposeful. His pupils are equal and sluggish. PLAN: We will continue current EVD drainage at 10 cm of water. I will go ahead and transfuse plts 1 pack. Will watch INR and if >1.4 will also require FFP infusion. Will recheck CBC and INR daily. Job ID: [id number] MTDD
--- NOTE | 2020-06-25 10:00 | PRG ---
DATE OF SERVICE: 06/25/2020 SUBJECTIVE: The patient was seen and examined. Agree with Ivana Lemos's evaluation on 06/25/2020. The patient remains in coma. He had some head turn and some grimace and some ventilatory efforts. There is some movement of all 4s which is nonpurposeful. His ventricular drain remains functional but quite bloody. CT scan is satisfactory with reduction of ventricular size, although he continues to have some entrapment of the left temporal horn of the lateral ventricle. IMPRESSION AND PLAN: The patient's prognosis remains poor. I discussed the situation with his sister, and apparently, he has 3 adult children as well. I am recommending continuing the ventricular drainage and maximal medical support for another day or two. At that time, we will need to consider placement of tracheostomy and PEG if we are to continue with maximal medical measures, and this may be an appropriate time for family meeting for decision making. In the interim, we will continue to treat coagulopathy. His ventricular drain remains high risk for clotting. Job ID: [id number]
[2020-06-25 10:38] LABS: INR-International Normal Ratio 1.7; PTT 36.5 sec (22.9-36.1); Prothrombin Time 20.6 sec (12.0-14.7)
--- NOTE | 2020-06-25 10:38 | PDOC.HOSPP ---
- Subjective Encounter Date: 06/25/20 Encounter Time: 10:37 Subjective: Mr. Villagran was seen today in follow-up of ICH, and respiratory failure. He is intubated and sedated. He appears to move all extremities. - Objective Vital Signs & Weight: Vital Signs (12 hours) Temp Pulse Resp BP Pulse Ox 06/25/20 10:15 140 H 124/56 L 06/25/20 10:00 20 06/25/20 08:17 100 06/25/20 08:00 24 H 06/25/20 07:23 100 06/25/20 06:00 20 06/25/20 04:00 98.6 F 20 06/25/20 02:35 101 H 127/69 06/25/20 02:00 23 H 06/25/20 00:00 98.8 F 23 H Weight Admit Weight 212 lb Weight 212 lb 4.882 oz Most Recent Monitor Data Heart Rate from ECG 149 NIBP 126/76 NIBP BP-Mean 92 Respiration from ECG 24 SpO2 100 I&O: 06/24/20 06/25/20 06/26/20 06:59 06:59 06:59 Intake Total 50 2427.6 0 Output Total 980 2110 318 Balance -930 317.6 -318 Result Diagrams: 06/25/20 04:25 06/25/20 04:25 Hospitalist ROS - Medication Medications: Active Medications Generic Name Dose Route Start Last Admin Trade Name Freq PRN Reason Stop Dose Admin Amlodipine Besylate 5 mg 06/25/20 09:45 06/25/20 10:15 Amlodipine 5 Mg Tab PO 06/25/20 12:00 5 mg NOW WENDIE Administration Carvedilol 3.125 mg 06/25/20 09:45 06/25/20 10:16 Carvedilol 3.125 Mg Tab PO 06/25/20 12:00 3.125 mg NOW WENDIE Administration Famotidine 20 mg 06/23/20 21:00 06/25/20 08:49 Famotidine/Pf 20 Mg/2ml Vial SLOW IVP 20 mg Q12HR WENDIE Administration Nicardipine HCl 50 mg/ Sodium 250 mls @ 0 mls/hr 06/23/20 20:15 06/24/20 05:59 Chloride IV 250 mls INF WENDIE Administration Protocol As Directed Levetiracetam 1,000 mg/ Device 100 mls @ 200 mls/hr 06/23/20 21:00 06/25/20 08:51 IVPB 100 mls BID WENDIE Administration Lactated Ringer's 1,000 mls @ 70 mls/hr 06/24/20 10:30 06/25/20 01:12 Lactated Ringer's IV 1,000 mls .[id number] WENDIE Administration Cefazolin Sodium/Dextrose 2 gm 50 mls @ 100 mls/hr 06/24/20 22:00 06/25/20 06:10 / Device IVPB 50 mls Q8HR WENDIE Administration Lorazepam 2 mg 06/23/20 20:15 06/25/20 08:49 Lorazepam 2 Mg/Ml Vial SLOW IVP 07/23/20 20:15 2 mg Q1H PRN Administration Breakthrough agitation Morphine Sulfate 2 mg 06/23/20 20:15 06/25/20 09:36 Morphine 2 Mg/Ml Vial SLOW IVP 07/23/20 20:15 2 mg Q1H PRN Administration Breakthrough Pain/Agitation Propofol 1,000 mg 06/23/20 20:15 06/25/20 09:36 Propofol 1,000 Mg/100 Ml Vial IV 07/23/20 20:15 1,000 mg INF PRN Administration TO ACHIEVE GOAL RASS Protocol - Exam Eye: PERRL, anicteric sclera Heart: RRR, no murmur, no gallops, no rubs, normal peripheral pulses Respiratory: no wheezes, no rales Gastrointestinal: soft, non-distended, normal bowel sounds Extremities: no cyanosis, no clubbing, no edema Hosp A/P (1) ICH (intracerebral hemorrhage) Code(s): I61.9 - NONTRAUMATIC INTRACEREBRAL HEMORRHAGE, UNSPECIFIED Status: Acute (2) Alcohol abuse Code(s): F10.10 - ALCOHOL ABUSE, UNCOMPLICATED Status: Chronic (3) Cirrhosis Code(s): K74.60 - UNSPECIFIED CIRRHOSIS OF LIVER Status: Chronic (4) HTN (hypertension) Code(s): I10 - ESSENTIAL (PRIMARY) HYPERTENSION Status: Chronic - Plan * ICH- unclear etiology, possibly from hypertension- he is s/p ventriculostomy drain placemement * HTN- will add scheduled medications per tube ( carvediolol and amlodipine) hopefully wean off the Cardene drip * Continue Ventilator to support and protect airway * He has had a large ICH- and prognosis is guarded at this time * Alcohol Abuse- for many years * Cirrhosis with coagulopathy
--- NOTE | 2020-06-25 13:57 | PDOC.NEUPN ---
- Subjective Encounter Date: 06/25/20 Subjective: No acute events in the last 24 hours. No improvement in the neurological deficits. Sister at bedside. - Objective Vital Signs & Weight: Vital Signs (12 hours) Temp Pulse Pulse Resp BP BP Pulse Ox 06/25/20 13:43 99.7 F H 85 20 119/65 100 06/25/20 13:15 99.7 F H 81 20 119/63 100 06/25/20 12:57 99.7 F H 80 20 117/65 100 06/25/20 12:55 99.7 F H 80 20 117/65 100 06/25/20 12:15 99.7 F H 82 20 114/64 99 06/25/20 12:00 20 06/25/20 11:59 99.4 F 87 20 104/59 L 100 06/25/20 11:52 99.1 F 82 20 104/59 L 06/25/20 11:15 99.9 F H 88 20 117/63 98 06/25/20 10:59 99.9 F H 86 20 100/57 L 100 06/25/20 10:38 96 06/25/20 10:15 140 H 124/56 L 06/25/20 10:00 20 06/25/20 08:17 100 06/25/20 08:00 24 H 06/25/20 07:23 100 06/25/20 06:00 20 06/25/20 04:00 98.6 F 20 06/25/20 02:35 101 H 127/69 06/25/20 02:00 23 H Weight Admit Weight 212 lb Weight 212 lb 4.882 oz Most Recent Monitor Data Heart Rate from ECG 83 NIBP 117/66 NIBP BP-Mean 83 Respiration from ECG 20 SpO2 100 I&O: 06/24/20 06/25/20 06/26/20 06:59 06:59 06:59 Intake Total 50 2427.6 805 Output Total 980 2110 415 Balance -930 317.6 390 Result Diagrams: 06/25/20 04:25 06/25/20 04:25 Radiology Reviewed by me: Yes EKG Reviewed by me: Yes ROS - Review of Systems ROS unobtainable: due to endotracheal tube - Medication Medications: Active Medications Generic Name Dose Route Start Last Admin Trade Name Freq PRN Reason Stop Dose Admin Famotidine 20 mg 06/23/20 21:00 06/25/20 08:49 Famotidine/Pf 20 Mg/2ml Vial SLOW IVP 20 mg Q12HR WENDIE Administration Nicardipine HCl 50 mg/ Sodium 250 mls @ 0 mls/hr 06/23/20 20:15 06/24/20 05:59 Chloride IV 250 mls INF WENDIE Administration Protocol As Directed Levetiracetam 1,000 mg/ Device 100 mls @ 200 mls/hr 06/23/20 21:00 06/25/20 08:51 IVPB 100 mls BID WENDIE Administration Lactated Ringer's 1,000 mls @ 70 mls/hr 06/24/20 10:30 06/25/20 01:12 Lactated Ringer's IV 1,000 mls .[id number] WENDIE Administration Cefazolin Sodium/Dextrose 2 gm 50 mls @ 100 mls/hr 06/24/20 22:00 06/25/20 13:37 / Device IVPB 50 mls Q8HR WENDIE Administration Lorazepam 2 mg 06/23/20 20:15 06/25/20 08:49 Lorazepam 2 Mg/Ml Vial SLOW IVP 07/23/20 20:15 2 mg Q1H PRN Administration Breakthrough agitation Morphine Sulfate 2 mg 06/23/20 20:15 06/25/20 09:36 Morphine 2 Mg/Ml Vial SLOW IVP 07/23/20 20:15 2 mg Q1H PRN Administration Breakthrough Pain/Agitation Propofol 1,000 mg 06/23/20 20:15 06/25/20 09:36 Propofol 1,000 Mg/100 Ml Vial IV 07/23/20 20:15 1,000 mg INF PRN Administration TO ACHIEVE GOAL RASS Protocol - Exam General Appearance: ill appearing Eye - other findings: Pupils not reactive to light ENT: normocephalic atraumatic Neck: supple Respiratory: CTAB Cardiovascular: RRR Gastrointestinal: soft Extremities: no cyanosis Skin: normal turgor Neurological: no new deficit Neurological - other findings: Cough positive, gag positive Musculoskeletal - other findings: Minimal withdrawal to nailbed pressure PSYCH: not oriented, somnolent (Intubated), lethargic Results - Labs Result Diagrams: 06/25/20 04:25 06/25/20 04:25 Lab results: WBC 7.8 thou/uL (4.8-10.8) 06/25/20 04:25 Hgb 10.1 g/dL (14.0-18.0) L 06/25/20 04:25 Hct 30.7 % (42.0-52.0) L 06/25/20 04:25 MCV 110.0 fL (78.0-98.0) H 06/25/20 04:25 Plt Count 81 thou/uL (130-400) L 06/25/20 04:25 Neutrophils % 76.7 % (42.0-75.0) H 06/25/20 04:25 Band Neuts % (Manual) 5 % (5-11) 06/24/20 03:25 ABG pH 7.30 (7.35-7.45) L 06/23/20 18:03 ABG pCO2 49.8 mmHg (35.0-45.0) H 06/23/20 18:03 ABG pO2 107.8 mmHg (80.0-100.0) H 06/23/20 18:03 Sodium 141 mmol/L (136-145) 06/25/20 04:25 Potassium 3.5 mmol/L (3.5-5.1) 06/25/20 04:25 Chloride 108 mmol/L (98-107) H 06/25/20 04:25 Carbon Dioxide 25 mmol/L (22-29) 06/25/20 04:25 BUN 18 mg/dL (8.4-25.7) 06/25/20 04:25 Creatinine 0.78 mg/dL (0.7-1.3) 06/25/20 04:25 Glucose 136 mg/dL (70-105) H 06/25/20 04:25 Lactic Acid 1.3 mmol/L (0.5-2.2) 06/23/20 16:13 Calcium 8.2 mg/dL (7.8-10.44) 06/25/20 04:25 Total Bilirubin 4.9 mg/dL (0.2-1.2) H 06/24/20 03:25 AST 89 U/L (5-34) H 06/24/20 03:25 ALT 47 U/L (8-55) 06/24/20 03:25 Alkaline Phosphatase 75 U/L (40-110) 06/24/20 03:25 Ammonia 43 umol/L (18-72) 06/23/20 16:13 Creatine Kinase 114 U/L (30-200) 06/23/20 16:13 Troponin I 0.013 ng/mL (< 0.028) 06/23/20 16:13 Serum Total Protein 8.8 g/dL (6.0-8.3) H 06/24/20 03:25 Albumin 3.5 g/dL (3.5-5.0) 06/24/20 03:25 Lipase 13 U/L (8-78) 06/23/20 16:13 - Radiology Interpretation CT scan - head Additional Comment: Head CT showed intracranial hemorrhage and is s/p ventriculostomy tube placement PN A/P (1) ICH (intracerebral hemorrhage) Code(s): I61.9 - NONTRAUMATIC INTRACEREBRAL HEMORRHAGE, UNSPECIFIED Status: Acute (2) Alcohol abuse Code(s): F10.10 - ALCOHOL ABUSE, UNCOMPLICATED Status: Chronic (3) Cirrhosis Code(s): K74.60 - UNSPECIFIED CIRRHOSIS OF LIVER Status: Chronic (4) HTN (hypertension) Code(s): I10 - ESSENTIAL (PRIMARY) HYPERTENSION Status: Chronic - Plan Daily Plan: plan discussed w/ family (Sister at bedside), DVT proph w/SCDs Mr. Villagran is a 55-year-old male who presented to the hospital after being found extremely lethargic and altered at home. He was intubated to protect his airway. Head CT revealed intracranial hemorrhage. He is s/p ventriculostomy tube placement. Extensive hemorrhage with no further surgical intervention per neurosurgery and prognosis is grave. Extensive neurological deficits with minimally preserved brainstem reflexes and long track sign. Continue neurochecks every 2 hours. Continue strict blood pressure control. Continue medical management per primary team, neurosurgery and pulmonology. Findings were discussed in detail with the patient's sister at bedside regarding the prognosis for more than 20 minutes. She was made aware that the chances of functional meaningful recovery seems grave at this point. Palliative care team on board. Patient sister will try to touch base with the family regarding further plan of care and also to change the full CODE STATUS.
[2020-06-25] MEDS ORDERED: FLU VACC QS2020-21(6MOS UP)/PF 60 MCG/0.5 ML SYRINGE IM ONE (15:00)
[2020-06-25] MEDS: Carvedilol 3.125 MG TAB PO SCH (16:38)
[2020-06-25] MEDS: niCARdipine 50 MG in Sodium Chloride 0.9% 250 ML 230 ML IV SCH (20:24)
[2020-06-26] MEDS: Propofol 1,000 MG/100 ML VIAL IV PRN ×2 (02:56→06:31)
[2020-06-26] MEDS: CEFAZOLIN 2 GM in Premix Bag 1 BAG IVPB SCH ×2 (05:10→13:45)
[2020-06-26] MEDS: Lactated Ringer's 1,000 ML IV SCH (05:10)
[2020-06-26 05:57] LABS: INR-International Normal Ratio 1.7
[2020-06-26 06:05] LABS: #Lymphocytes 1.2 thou/uL (1.20-3.40); #Monocytes 0.5 thou/uL (0.11-0.59); %Basophils 0.3 % (0.0-1.0); %Eosinophils 0.2 % (0.0-10.0); %Lymphocytes 24.5 % (21.0-51.0); Mean Corpuscular HGB CONC 33.1 g/dL (32.0-36.0); Mean Corpuscular Hemoglobin 36.8 pg (27.0-31.0); Mean Platelet Volume 8.2 fL (7.4-10.4); Platelet Count 81 thou/uL (130-400); RBC Distribution Width 12.3 % (11.5-14.5); Red Blood Cell (RBC) Count 3.54 mill/uL (4.70-6.10); White Blood Cell (WBC) Count 4.7 thou/uL (4.8-10.8)
[2020-06-26 06:13] LABS: Anion Gap 10 mmol/L (10-20); BUN (Urea Nitrogen) 16 mg/dL (8.4-25.7); Calc. Creatinine Clearance 135 mL/min (70-130); Calcium 8.2 mg/dL (7.8-10.44); Carbon Dioxide 25 mmol/L (22-29); Chloride 110 mmol/L (98-107); Estimated GFR-MDRD Greater than 90; Glucose 117 mg/dL (70-105); Potassium 3.4 mmol/L (3.5-5.1); Sodium 142 mmol/L (136-145)
[2020-06-26 07:43] LABS: INR-International Normal Ratio 1.6; PTT 36.5 sec (22.9-36.1); Prothrombin Time 19.7 sec (12.0-14.7)
[2020-06-26] MEDS: levETIRAcetam in NS 1,000 MG in Premix Bag 1 BAG IVPB SCH (08:14)
[2020-06-26] MEDS: Famotidine/PF 20 mg/2ml Vial SLOW IVP SCH (08:14)
[2020-06-26] MEDS: Carvedilol 3.125 MG TAB PO SCH (08:15)
--- NOTE | 2020-06-26 08:54 | PDOC.HOSPP ---
- Subjective Encounter Date: 06/26/20 Encounter Time: 08:50 Subjective: Mr. Villagran was seen today in follow-up of ICH. He is mostly unchanged. - Objective Vital Signs & Weight: Vital Signs (12 hours) Pulse Resp BP Pulse Ox 06/26/20 08:14 96 142/82 H 06/26/20 08:00 23 H 06/26/20 07:08 100 06/26/20 06:00 20 06/26/20 04:00 20 06/26/20 02:11 86 137/79 06/26/20 02:00 20 06/26/20 00:00 23 H 06/25/20 22:18 89 139/80 06/25/20 22:00 20 Weight Admit Weight 212 lb Weight 212 lb 4.882 oz Most Recent Monitor Data Heart Rate from ECG 84 NIBP 142/82 NIBP BP-Mean 102 Respiration from ECG 20 SpO2 100 I&O: 06/25/20 06/26/20 06/27/20 06:59 06:59 06:59 Intake Total 2427.6 3972 0 Output Total 2110 3066 342 Balance 317.6 906 -342 Result Diagrams: 06/26/20 05:26 06/26/20 05:26 Hospitalist ROS - Medication Medications: Active Medications Generic Name Dose Route Start Last Admin Trade Name Main PRN Reason Stop Dose Admin Amlodipine Besylate 5 mg 06/26/20 09:00 06/26/20 08:14 Amlodipine 5 Mg Tab PO 5 mg DAILY WENDIE Administration Carvedilol 3.125 mg 06/25/20 17:00 06/26/20 08:15 Carvedilol 3.125 Mg Tab PO 3.125 mg BID-WM WENDIE Administration Famotidine 20 mg 06/23/20 21:00 06/26/20 08:14 Famotidine/Pf 20 Mg/2ml Vial SLOW IVP 20 mg Q12HR WENDIE Administration Nicardipine HCl 50 mg/ Sodium 250 mls @ 0 mls/hr 06/23/20 20:15 06/25/20 20:24 Chloride IV 250 mls INF WENDIE Administration Protocol As Directed Levetiracetam 1,000 mg/ Device 100 mls @ 200 mls/hr 06/23/20 21:00 06/26/20 08:14 IVPB 100 mls BID WENDIE Administration Lactated Ringer's 1,000 mls @ 70 mls/hr 06/24/20 10:30 06/26/20 05:10 Lactated Ringer's IV 1,000 mls .[id number] WENDIE Administration Cefazolin Sodium/Dextrose 2 gm 50 mls @ 100 mls/hr 06/24/20 22:00 06/26/20 05:10 / Device IVPB 50 mls Q8HR WENDIE Administration Lorazepam 2 mg 06/23/20 20:15 06/25/20 08:49 Lorazepam 2 Mg/Ml Vial SLOW IVP 07/23/20 20:15 2 mg Q1H PRN Administration Breakthrough agitation Morphine Sulfate 2 mg 06/23/20 20:15 06/25/20 09:36 Morphine 2 Mg/Ml Vial SLOW IVP 07/23/20 20:15 2 mg Q1H PRN Administration Breakthrough Pain/Agitation Propofol 1,000 mg 06/23/20 20:15 06/26/20 06:31 Propofol 1,000 Mg/100 Ml Vial IV 07/23/20 20:15 1,000 mg INF PRN Administration TO ACHIEVE GOAL RASS Protocol - Exam Eye: PERRL Heart: RRR, no murmur, no gallops, no rubs, normal peripheral pulses Respiratory: CTAB, no wheezes, no rales, no ronchi, normal chest expansion, no tachypnea Gastrointestinal: soft, non-distended, normal bowel sounds Extremities: no cyanosis, no edema Hosp A/P (1) ICH (intracerebral hemorrhage) Code(s): I61.9 - NONTRAUMATIC INTRACEREBRAL HEMORRHAGE, UNSPECIFIED Status: Acute (2) Alcohol abuse Code(s): F10.10 - ALCOHOL ABUSE, UNCOMPLICATED Status: Chronic (3) Cirrhosis Code(s): K74.60 - UNSPECIFIED CIRRHOSIS OF LIVER Status: Chronic (4) HTN (hypertension) Code(s): I10 - ESSENTIAL (PRIMARY) HYPERTENSION Status: Chronic - Plan * ICH- unclear etiology, possibly from hypertension- he is s/p ventriculostomy drain placemement * HTN-blood pressure is a bit improved * Neurology input appreciated- The patient has minimal chance at meaningful recovery. His Code status has been changed to DNAR * Alcohol Abuse- for many years * Cirrhosis with coagulopathy * Family meeting is planned in the next few days.
--- NOTE | 2020-06-26 08:57 | PRG ---
DATE OF SERVICE: 06/26/2020 SUBJECTIVE: The patient has little change in his neurologic function. His EVD remains in place and is functional. He is having anywhere from 8-10 mL out of bloody drainage. His ICP is currently 6. He continues to have issues with thrombocytopenia. His platelets this morning are 81 and his INR is 1.6. OBJECTIVE: On exam, he does not open his eyes. His pupils are equal, sluggish, and gaze is slightly downgoing. He would withdraw briskly over all 4s. PLAN: We will go ahead and transfuse additional two packs of platelets and 6 units of FFP. We will leave the EVD at this current setting. Palliative care plans to meet with the family later to discuss the patient and family wishes. He was made DNR yesterday by the family. Job ID: [id number]
[2020-06-26] MEDS ORDERED: Amlodipine 5 MG TAB PO SCH (09:00)
--- NOTE | 2020-06-26 09:15 | PRG ---
DATE OF SERVICE: 06/26/2020 SUBJECTIVE: I examined Mr. Villagran off sedation. His eyes were downward and leftward deviated. His pupils are midposition and I could not get a definitive reaction. He has no right corneal, and a brisk left corneal. He has some cough and some overbreathing the ventilator. To painful stimulus, he has some high tone movement of the extremities. This is extensor, but there is a subtle amount of flexor high tone withdrawal. IMPRESSION AND PLAN: The patient has had a devastating intracranial hemorrhage. His neurologic function is extremely poor. He is in deep coma with loss of several brainstem reflexes. My opinion is prognosis for meaningful recovery is very poor. I discussed this with his sister yesterday and was her preliminary feeling that he would not want to continue with aggressive support with no meaningful likelihood of independent function in the future. Additional meeting just scheduled for today with palliative care. Job ID: [id number]
[2020-06-26 09:16] VITALS: TEMP 99.1
[2020-06-26] MEDS ORDERED: Lorazepam 2 MG/ML VIAL SLOW IVP PRN (09:30)
[2020-06-26 11:00] VITALS: BP 139/76
--- NOTE | 2020-06-26 11:15 | PRG ---
DATE OF SERVICE: 06/26/2020 SUBJECTIVE: I am told that family is probably going to withdrawal care later today. He remains in mechanical ventilation. OBJECTIVE: VITAL SIGNS: Temperature 99.1, pulse 89, blood pressure 142/82, O2 saturation 97%. HEENT: Remarkable for being intubated. NECK: No JVD. LUNGS: Clear. CARDIAC: S1 and S2, regular. ABDOMEN: Soft. EXTREMITIES: No edema. NEUROLOGICAL: He will withdrawal, especially on his right side. LABORATORY DATA: White blood cell count 4.7, hematocrit 39.3, and platelet count 81. INR is 1.6. Sodium 142, potassium 3.4, chloride 110, CO2 of 25, BUN 16, creatinine 0.8, glucose 117. ASSESSMENT: 1. Devastating intracranial hemorrhage. 2. Acute respiratory failure, requiring mechanical ventilation. PLAN: Withdrawal of care probably later today. Dr. Escobar has written orders for that. Pulmonary will be available as needed. Job ID: [id number]
--- NOTE | 2020-06-26 16:01 | PDOC.DS.DS ---
Provider - Provider Date of Admission: 06/23/20 19:23 Date of Discharge: 06/26/20 Admitting Provider: Je Tijerina Consultations: Neurology, Pulmonary, Other (Neurosurgery) Primary Care Physician: NO PCP PROVIDER Course - Hospital Course Hospital Course: Mr. Villagran is a 55-year-old gentleman who was found down at home. He had recently been diagnosed with cirrhosis likely due to alcohol abuse. When he was brought to the emergency room he was evaluated and found to have a large intracranial hemorrhage which had extended into the ventricles. He was intubated and admitted to the ICU. He was placed on Keppra for seizure prophylaxis. Neurosurgery was consulted and the patient underwent urgent ventriculostomy drain. The patient had to have the replacement of the ventriculostomy due to clotting of the tubing. Neurology was consulted. Due to the size of the bleed it was felt that the patient would not have any meaningful recovery. The patient's sister and the patient's son met with the palliative care team and after observing him in the hospital for 48 hours they made the decision to withdraw mechanical ventilator support. And the patient peacefully shortly thereafter. Pertinent Studies: CT- Brain CT abdomen and pelvis Ventriculostomy EEG Resuscitation Status: 06/25/20 14:18 Resuscitation Status Routine Resuscitation Status: DNAR: NO Resuscitation Discussed with: Seda Garcia (sister) Additional comments: Pt's 3 children requesting that Seda be the decision maker - Labs Lab Results: 06/26/20 05:26 06/26/20 05:26 Abnormal Lab Results - Last 48 hrs 06/23/20 18:19: Crossmatch See Detail 06/25/20 04:25: Chloride 108 H 06/25/20 04:25: RBC 2.79 L, Hgb 10.1 L, Hct 30.7 L, MCV 110.0 H, MCH 36.3 H, Plt Count 81 L, Neutrophils % 76.7 H, Lymphocytes % 12.1 L, Monocytes % 10.4 H, Lymphocytes # 1.0 L, Monocytes # 0.8 H 06/25/20 10:19: PT 20.6 H, APTT 36.5 H 06/26/20 05:26: Potassium 3.4 L, Chloride 110 H 06/26/20 05:26: WBC 4.7 L, RBC 3.54 L, Hgb 13.0 L, Hct 39.3 L, MCV 111.0 H, MCH 36.8 H, Plt Count 81 L, Monocytes % 11.0 H 06/26/20 05:26: PT 20.0 H 06/26/20 07:22: PT 19.7 H, APTT 36.5 H Microbiology - Entire Visit 06/23/20 18:10 Urine zhou catheter Urine Culture - Final NO GROWTH AT 48 HOURS 06/23/20 16:13 Venous blood - Right Arm Blood Culture - Preliminary NO GROWTH AT 48 HOURS 06/23/20 16:11 Venous blood - Left Arm Blood Culture - Preliminary NO GROWTH AT 48 HOURS - Physical Exam Vitals: Vital Signs (12 hours) Temp Pulse Pulse Resp BP BP Pulse Ox 06/26/20 10:59 90 139/76 06/26/20 10:00 99.1 F 91 20 142/82 H 97 06/26/20 09:15 99.1 F 84 20 138/81 98 06/26/20 08:14 96 142/82 H 06/26/20 08:00 23 H 06/26/20 07:08 100 06/26/20 06:00 20 06/26/20 04:00 20 Weight Admit Weight 212 lb Weight 212 lb 4.882 oz Most Recent Monitor Data Heart Rate from ECG 122 NIBP 122/86 NIBP BP-Mean 98 Respiration from ECG 30 SpO2 98 Physical Exam: The patient was seen and examined on the day of discharge. Problem - Problem (1) ICH (intracerebral hemorrhage) Code(s): I61.9 - NONTRAUMATIC INTRACEREBRAL HEMORRHAGE, UNSPECIFIED Status: Acute (2) Alcohol abuse Code(s): F10.10 - ALCOHOL ABUSE, UNCOMPLICATED Status: Chronic (3) Cirrhosis Code(s): K74.60 - UNSPECIFIED CIRRHOSIS OF LIVER Status: Chronic (4) HTN (hypertension) Code(s): I10 - ESSENTIAL (PRIMARY) HYPERTENSION Status: Chronic Plan - Discharge Medications Allergies: Sulfa (Sulfonamide Antibiotics) Allergy (Unverified 06/23/20 17:42) Additional comments: Patient 14:17 - Follow up Plan Referrals: PROVIDER,NO PCP [Primary Care Provider] - Disposition: Quality - Care Measures CORE MEASURES:: N/A
--- NOTE | 2020-06-30 10:41 | PQF ---
CLINICAL DOCUMENTATION CLARIFICATION FORM: Dear Dr. Geraldo Escobar Date: 06.30.20 Please exercise your independent, professional judgment in responding to the clarification form. Clinical indicators are provided on the bottom of this form for your review. Please check appropriate box(es): [ X] Cerebral edema / Vasogenic /Edema [X ] Compression of brain [ ] No cerebral edema [ ] Other diagnosis [ ] Unable to determine For continuity of documentation, please document condition throughout progress notes and discharge summary. Thank You. To be completed by CDI/Coding staff for physician review: CLINICAL INDICATORS - SIGNS / SYMPTOMS / LABS / RESULTS AND LOCATION IN EMR ED: intracranial hemorrhage Oriented to person, speech is garbled, Found unresponsive in home pt is alcoholic; jaundice in appearance; alert to painful stimuli; T 99.5 CRITICORE TEMP ON VENT @ 1801 GCS @1954 E 1/ V 1 / M [address] Brain: There is associated left to right midline shift and diffuse subarachnoid blood. 11.25 CT Brain: There remains mild 5 mm left to right midline displacement 11.26 PN (Meyer): resp failure 11.27 PN (Canelo): transfuse additional 2 packs of platelets and 6 units of FFP. 11.27 PN (Hurd): he is in deep coma w/ loss of several brainstem reflexes RISK FACTORS / RESULTS AND LOCATION IN EMR 11.24 H&P (Breezy): * PMH of alcohol abuse * Intracerebral Hemorrhage - unclear etiology, possibly from hypertension * HTN TREATMENTS / RESULTS AND LOCATION IN EMR 1124 H&P (Breezy): * Heat CT * Neuro surgery consult * Nicardine drip to maintain b/p systolic under 140 * avoid blood thinners* ffp+ plts transfusion for procedure * avoid hypotonic fluids * MV to protect airway pulm/crit consult * Keppra for seizure prophylaxis Procedure 11.24 left frontal ventriculostomy CDS Signature: Sweetie Mccarthy RN, CCDS Phone #: [phone] [email or web address] This is a permanent part of the Medical Record [facility]
== END 2020-06-26 14:17 | disposition expired | DRG 23 ==
LOC: ERS 15:35 → CCU 19:23
PROVIDERS: ADMIT Internal Medicine; ATTEND Internal Medicine
PROC: 009630Z Drainage of Cerebral Ventricle with Drainage Device, Percutaneous Approach (ICD-10-PCS; principal; 2020-06-23)
PROC: 30233K1 Transfusion of Nonautologous Frozen Plasma into Peripheral Vein, Percutaneous Approach (ICD-10-PCS; 2020-06-23)
PROC: 30233R1 Transfusion of Nonautologous Platelets into Peripheral Vein, Percutaneous Approach (ICD-10-PCS; 2020-06-23)
PROC: 06HY33Z Insertion of Infusion Device into Lower Vein, Percutaneous Approach (ICD-10-PCS; 2020-06-23)
PROC: [UNRECOGNIZED PROCEDURE] (2020-06-24)
PROC: 5A1945Z Respiratory Ventilation, 24-96 Consecutive Hours (ICD-10-PCS; 2020-06-24)
PROC: 0BH17EZ Insertion of Endotracheal Airway into Trachea, Via Natural or Artificial Opening (ICD-10-PCS; 2020-06-24)
DX: I61.5 Nontraumatic intracerebral hemorrhage, intraventricular (principal); J96.00 Acute respiratory failure, unspecified whether with hypoxia or hypercapnia; G93.6 Cerebral edema; D68.9 Coagulation defect, unspecified; I10 Essential (primary) hypertension; K70.30 Alcoholic cirrhosis of liver without ascites; D69.6 Thrombocytopenia, unspecified; Z88.2 Allergy status to sulfonamides; Z51.5 Encounter for palliative care; Z66 Do not resuscitate; F10.10 Alcohol abuse, uncomplicated; Z20.828 Contact with and (suspected) exposure to other viral communicable diseases; Z78.1 Physical restraint status
CPT/HCPCS: 31500; 36415; 36430; 36556; 36600; 51702; 70450; 71045; 72125; 74177; 80048; 80053; 80306; 80307; 82140; 82550; 82805; 83605; 83690; 84443; 84484; 85007; 85025; 85027; 85610; 85730; 86850; 86900; 86901; 87040; 87086; 93005; 94002; 94003; 95712; 95819; 95957; 96365; 96366; 96367; 96368; 96375; 96376; 99292; J0690; J0692; J1953; J2060; J2270; J2704; J3010; J3370; J7030; J7050; J7131; P9035; P9059; Q9967; S0028; U0002